=== PATIENT | female | born 1975 | race Caucasian/White ===

== ENCOUNTER 2016-06-28 02:17 | Emergency (ER) | payer MEDICAID ==
[~2016-06-28] VITALS: Ht 142.2 cm; Wt 88.6 kg
[~2016-06-28 02:17] MED LIST: AC325T PO; ACET-789; ALB0.5V INH; ALBU8.5H2 IH; AMOX500C5 PO; CEFD300C PO; CLON1TAB3 PO; CODE118S2 PO; FLUO25PO10 MC; FLX20C PO; GBPN300C PO; HYDR-3702 PO; IBUP-30 PO; IBUP100T9 PO; IPRA3AMP11 INH; LORA10CA PO; METO100T6; MNTL10T PO; MONT4TAB8 PO; MTP25TSR PO; MTP50T PO; PRD10T PO; PRED20TA PO; SULF-228 PO; TRAM-25; TRAM-25 PO; [UNRECOGNIZED DRUG - OTHER]
--- OUTSIDE RECORDS SUMMARY | 2016-06-28 02:21 | XMS REPORT | Summary of Care ---
Author Author Alfredo Mane M.D. Organization Unknown Address Unknown Phone Unavailable Care Team Providers Care Lead Recoverer Name Role Phone Alfredo Mane M.D. Unavailable Unavailable Jamarcus Mane M.D. Unavailable Unavailable Alfredo Mane Unavailable Unavailable Unavailable Unavailable Functional Status Name Dates Details Functional status health issues are not documented Status: Name Dates Details Cognitive status health issues are not documented Status: Problems Name Dates Details Anxiety (300.00, F41.9) Status: Active Seasonal allergies (477.9, J30.2) Status: Active Depression (311, F32.9) Status: Active Asthma (493.90, J45.909) Status: Active Tethered cord (742.59, Q06.8) Status: Active Congenital scoliosis (754.2, Q67.5) Status: Active Klippel-Feil syndrome (756.16, Q76.1) Status: Active Chronic pain (338.29, G89.29) Status: Active Tachycardia (785.0, R00.0) Status: Active Osteoporosis (733.00, M81.0) Status: Active Screening, lipid (V77.91, Z13.220) Status: Active Pain, dental (525.9, K08.89) Status: Active Low back pain (724.2, M54.5) Status: Active Medications Name Dates Details FLUoxetine HCl - 20 MG Oral Capsule TAKE 1 CAPSULE TWICE DAILY. Refills: 0 Start 08-May-2016 Active Metoprolol Succinate ER 25 MG Oral Tablet Extended Release 24 Hour TAKE 1 TABLET DAILY. Quantity: 30 Refills: 6 Brighton M.D.Alfredo Start 08-May-2016 Active Gabapentin 300 MG Oral Capsule Take 1 capsule q hs Quantity: 30 Refills: 0 Brighton M.DAlfredo Reis Start 08-May-2016 Active Montelukast Sodium 10 MG Oral Tablet TAKE 1 TABLET AT BEDTIME. Refills: 0 Start 08-May-2016 Active Ipratropium-Albuterol 0.5-2.5 (3) MG/3ML Inhalation Solution USE 1 UNIT DOSE IN NEBULIZER EVERY 4 HOURS NEEDED. Refills: 0 Start 08-May-2016 Active ProAir HFA 108 (90 Base) MCG/ACT Inhalation Aerosol Solution INHALE 1 TO 2 PUFFS EVERY 4 TO 6 HOURS NEEDED. Quantity: 1 Refills: 3 Brighton M.DAlfredo Reis Start 08-May-2016 Active 8.5 GM Inhaler Cephalexin 500 MG Oral Tablet 1 po BID Quantity: 30 Refills: 0 Brighton M.D.Alfredo Start 08-May-2016 Active TraMADol HCl - 50 MG Oral Tablet TAKE 1 TABLET 3 TIMES DAILY NEEDED. Quantity: 90 Refills: 5 Brighton M.D., Alfredo Start 15-May-2016 Active Hydrocodone-Acetaminophen 5-325 MG Oral Tablet 1 po tid prn Quantity: 40 Refills: 0 Brighton M.DJamarcus Reis Start 29-May-2016 Active Dicloxacillin Sodium 500 MG Oral Capsule TAKE 1 CAPSULE 4 TIMES DAILY. Quantity: 40 Refills: 0 Brighton M.Jamarcus Poe Start 07-Jun-2016 Active Clindamycin HCl - 300 MG Oral Capsule Take 1 po TID x 5 days. Quantity: 15 Refills: 0 Alhaji M.DJamarcus Reis Start 09-Jun-2016 Active Allergies and Adverse Reactions Name Dates Details Lyrica CAPS (Adverse Event) Status: Active Past Medical History Name Dates Details History of pneumonia (V12.61, Z87.01) Status: Resolved Procedures Procedure Dates Details History of Lung Surgery History of Section History of Hernia Repair History of Hysterectomy History of Nerve Ablation History of Bronchoscopy (Therapeutic) CBC w/ Auto Diff 7150 Ordered: 08-May-2016 Comprehensive Metabolic Panel 1212 Ordered: 08-May-2016 LIPID PROFILE 1184 Ordered: 08-May-2016 Immunization Name Dates Details Immunizations not documented Family History Name Dates Details Family history of type 2 diabetes mellitus (V18.0, Z83.3) Status: Active Family history of cerebrovascular accident (CVA) (V17.1, Z82.3) Status: Active Family history of malignant neoplasm of breast (V16.3, Z80.3) Status: Active Name Dates Details Family history of malignant neoplasm of breast (V16.3, Z80.3) Status: Active Name Dates Details Family history of asthma (V17.5, Z82.5) Status: Active Name Dates Details Family history of hypertension (V17.49, Z82.49) Status: Active Social History Name Dates Details Unknown if ever smoked Vital Signs Date Test Result Details 07-Jun-2016 16:14 BP Systolic 138 mm[Hg] Status: Comments: Location: ; Position: BP Diastolic 86 mm[Hg] Status: Comments: Location: ; Position: Temperature 98.2 f Status: Comments: Method: Heart Rate 105 /min Status: Comments: Location: ; Weight 194 lb Status: Physical Findings 95 Status: Comments: O2 Saturation Body Mass Index Calculated 40.13 kg/m2 Status: Body Surface Area Calculated 1.8 m2 Status: Results Date Description Value Details Results not documented Plan of Care Name Dates Details Planned Observations CBC w/ Auto Diff 7150 On 02-Jun-2016 Intent Comprehensive Metabolic Panel 1212 On 02-Jun-2016 Intent LIPID PROFILE 1184 On 02-Jun-2016 Intent Planned Goals not documented Interventions Provided Medication ChangesCephalexin 500 MG Oral Tablet - StartGabapentin 300 MG Oral Capsule - Renew with ChangesTraMADol HCl ER 100 MG Oral Capsule Extended Release 24 Hour - Start Instructions Name Dates Details Instructions not documented Encounters Appointment; Alfredo Mane M.D. Encounter Diagnosis: Problem not documented On 08-May-2016 09:30
[2016-06-28] MEDS ORDERED: clonazePAM 0.5 MG (KlonoPIN) TAB PO ONE (02:45)
[2016-06-28] MEDS ORDERED: CLON1TAB27 PO (02:46)
[2016-06-28 03:00] VITALS: BP 123/84
== END 2016-06-28 03:01 | disposition home or self-care (01) ==
LOC: ED 02:18
DX: F41.9 Anxiety disorder, unspecified (principal)
CPT/HCPCS: 99283; A9270

== ENCOUNTER 2016-07-09 23:46 | Emergency (ER) | payer MEDICAID ==
[~2016-07-09] VITALS: Ht 142.2 cm; Wt 88.4 kg
[~2016-07-09 23:46] MED LIST changes: +CLON1TAB27 PO
[2016-07-10] MEDS ORDERED: PROMETHAZINE 25 MG/ML (PHENERGAN) 1 ML VIAL IM ONE (00:30)
[2016-07-10] MEDS ORDERED: KETOROLAC 60 MG/2 ML (TORADOL) VIAL IM ONE (00:30)
[2016-07-10] MEDS ORDERED: HYDROmorphone 2 MG/ML (DILAUDID) 1 ML SYRINGE IM ONE (00:30)
[2016-07-10] MEDS ORDERED: ED- HYDROcodone/ACETAMINOPHEN 5MG/325MG (NORCO) 6 TABLETS/BTL PO ONE (00:55)
[2016-07-10] MEDS ORDERED: HYDROmorphone 1 MG/ML (DILAUDID) SYRINGE IM ONE (01:30)
[2016-07-10 01:39] VITALS: BP 132/88
--- NOTE | 2016-07-10 01:40 | NUR ---
PER DR ALESSANDRO MARTINEZ PT HOME BEFORE 2ND SHOT OF DILAUDID IM FULL EFFECT.
== END 2016-07-10 01:41 | disposition home or self-care (01) ==
LOC: ED 23:47
DX: M54.5 Low back pain (principal); M79.605 Pain in left leg
CPT/HCPCS: 96372; 99282; A9270; J1170; J1885; J2550; 99283

== ENCOUNTER → 2016-11-01 | Outpatient (CLI) | payer MEDICAID ==
[2016-11-01 10:02] LABS: MEAN CORPUSCULAR HEMOGLOBIN 27.4 PG (26.0-34.0); MEAN CORPUSCULAR HGB CONC 32.7 g/dL (31.0-37.0); MEAN CORPUSCULAR VOLUME 84 FL (80-100); MEAN PLATELET VOLUME 9.9 FL (6.0-9.5); PLATELET COUNT 285 10^3uL (150-450); WHITE BLOOD COUNT 13.63 10^3uL (4.0-11.0)
[2016-11-01 10:38] LABS: BAND NEUTROPHILS % 0 % (0-6); EOSINOPHILS % 2 % (0-4); MONOCYTES # 0.3 #; MONOCYTES % 2 % (3-11); RBC MORPH NORMAL (NORMAL); SEGMENTED NEUTROPHILS % 81 % (51-67); TOTAL CELLS COUNTED 100
--- NOTE | 2016-11-01 12:42 | Diagnostic Imaging Report ---
PROCEDURE: CT angiography of the chest with contrast. TECHNIQUE: Multiple contiguous axial images were obtained through the chest after uneventful bolus administration of intravenous contrast. Reconstructed CTA MIP acquisitions were also performed. INDICATION: Shortness of breath and chest pain There is a faint alveolar infiltrate in the lungs. There are no pulmonary emboli seen. There are no effusions or pneumothoraces. Aorta is unremarkable. There is no hilar or mediastinal lymphadenopathy. Impression: Faint patchy alveolar infiltrate in the lungs could be secondary to edema. There is no evidence for pulmonary embolism. Dictated by: Dictated on workstation # [id number]
== END ==
LOC: LAB 09:41
PROVIDERS: ATTEND Family Medicine
DX: R79.89 Other specified abnormal findings of blood chemistry (principal); R09.02 Hypoxemia
CPT/HCPCS: 36415; 71275; 85007; 85027; 85379; 86140; Q9967

== ENCOUNTER 2016-11-08 08:12 | Emergency (ER) | payer MEDICAID ==
[~2016-11-08] VITALS: Ht 142.2 cm; Wt 88.9 kg
[2016-11-08 08:45] LABS: BASOPHILS % (AUTO) 1 % (0-2); EOSINOPHILS # (AUTO) 0.2 10^3uL; EOSINOPHILS % (AUTO) 2 % (0-4); LYMPHOCYTES # (AUTO) 2.4 X10^3; MEAN CORPUSCULAR HEMOGLOBIN 27.1 PG (26.0-34.0); MEAN CORPUSCULAR HGB CONC 31.9 g/dL (31.0-37.0); MEAN CORPUSCULAR VOLUME 85 FL (80-100); MEAN PLATELET VOLUME 9.8 FL (6.0-9.5); MONOCYTES # (AUTO) 0.4 X10^3; MONOCYTES % (AUTO) 4 % (3-11); NEUTROPHILS # (AUTO) 6.9 X10^3; NEUTROPHILS % (AUTO) 69 % (51-67); PLATELET COUNT 328 10^3uL (150-450); WHITE BLOOD COUNT 10.05 10^3uL (4.0-11.0)
[2016-11-08 08:58] LABS: ALKALINE PHOSPHATASE 125 U/L (38-126); BUN/CREATININE RATIO 20 (10-20); CALCULATED IONIZED CALCIUM 3.8 mg/dL (3.8-4.6); CREATINE KINASE 47 U/L (30-135); TOTAL PROTEIN 7.5 g/dL (6.4-8.5)
--- NOTE | 2016-11-08 09:15 | Diagnostic Imaging Report ---
INDICATION: Shortness of breath x 2 weeks. TECHNIQUE: PA and lateral films of the chest were obtained at 0854 hours. COMPARISON: 01/23/2016. FINDINGS: The heart is mildly enlarged. There is very poor inspiration. There is some right basilar atelectasis. There is no pneumothorax or pleural fluid. IMPRESSION: Mild cardiomegaly. Poor inspiration. Mild right basilar atelectasis. Otherwise, no significant change from 01/23/2016. Dictated by: Dictated on workstation # [id number]
--- NOTE | 2016-11-08 09:31 | NUR ---
RT called for abg
[2016-11-08] MEDS ORDERED: BACITRACIN OINTMENT 0.9 GM PACKET TOP ONE (09:45)
[2016-11-08 09:56] LABS: ABG PCO2 46 mmHg (35-45); ABG PH 7.36 (7.35-7.45); ABG PO2 75 mmHg (80-105)
[2016-11-08 09:57] LABS: ABG OXYGEN SATURATION 94 % (95-98)
--- NOTE | 2016-11-08 09:57 | NUR ---
ABG COMPLETE BY RT
--- NOTE | 2016-11-08 10:37 | NUR ---
ABAD SALTER RN IS AMBULATING PT WITH OXIMETRY PER DR MEHTA
--- NOTE | 2016-11-08 10:40 | NUR ---
PT TOLERATES AMBULATING WELL. O2 READS 87 BRIEFLY BUT THERE IS NOT A GOOD WAVEFORM. DR MEHTA NOTIFIED. CL
[2016-11-08] MEDS ORDERED: PRED20TA PO (10:57)
[2016-11-08 11:15] VITALS: BP 132/92
== END 2016-11-08 11:08 | disposition home or self-care (01) ==
LOC: ED 08:14
DX: J45.901 Unspecified asthma with (acute) exacerbation (principal)
CPT/HCPCS: 36415; 36600; 71020; 80053; 82550; 82553; 82803; 83880; 84484; 85025; 86140; 93005; 93010; 99283; 99285